=== PATIENT | female | born 1960 | race Caucasian/White ===

== ENCOUNTER 2017-02-23 09:57 | Day surgery (SDC) | payer OTHER ==
[~2017-02-23] VITALS: Ht 149.9 cm; Wt 53.1 kg
[2017-02-23 10:23] VITALS: Ht 149.9 cm; Wt 53.1 kg
[2017-02-23] MEDS ORDERED: MIDAZOLAM 1 MG/ML 2 ML INJ ONE (10:29)
[2017-02-23] MEDS ORDERED: PROPOFOL 20 ML ONE (10:29)
[2017-02-23] MEDS ORDERED: FENTAnyl 50 MCG/ML VIAL ONE (10:30)
[2017-02-23 10:35] VITALS: BP 122/71; PULSE 83; RESP 21
--- NOTE | 2017-02-23 11:23 | OPPN ---
Date/Time of Note Date/Time of Note DATE: 02/23/17 TIME: 11:19 Proc Note GI Procedure date: Feb 23, 2017 Pre-procedure Diagnosis Need for screening colonoscopy Post-procedure Diagnosis internal hemorrhoids Operation Performed Colonoscopy Surgeon: CAMRYN ANDREA M.D. Anesthesia Type: MAC Anesthesiologist: VIK ROSARIO MD Estimated blood loss: none Transfusion Required: no Specimen: none Grafts/Implants: none Complications: no Pt Condition post procedure: stable Disposition: PACU Operative\Procedure Findings internal hemorrhoids CAMRYN ANDREA M.D. Feb 23, 2017 11:22
[2017-02-23 11:46] VITALS: BP 111/63; PULSE 74; RESP 13
--- NOTE | 2017-02-23 12:26 | OPR ---
DATE OF OPERATION: 02/23/2017 OPERATION PERFORMED: Colonoscopy. PREOPERATIVE DIAGNOSIS: Need for screening colonoscopy. POSTOPERATIVE DIAGNOSIS: Internal hemorrhoids. SURGEON: Daniel Gross MD. ANESTHESIOLOGIST: Dr. Montalvo. ANESTHESIOLOGIST: ELISA. POSITION: Left lateral decubitus. OPERATIVE FINDINGS AT SURGERY: Internal hemorrhoids. INDICATIONS: A 56-year-old woman I had seen in the office for a proctologic issue. Patient stated she had never had a screening colonoscopy. I discussed the risks and benefits of a screening colonoscopy including bleeding, infection, damage to surrounding structures, perforation. Patient agreed to the procedure and we went to the GI suite. OPERATIVE PROCEDURE: After obtaining consent, the patient was brought to the GI suite. After induction of anesthesia, the patient was gently placed in left lateral decubitus position. The pressure points were carefully padded. I began with a digital rectal exam, which was unremarkable. I then placed a lubricated Olympus colonoscope in the patient's anus and navigated it carefully to the cecum. The prep was good. I slowly retracted the scope the entirety of the colon. There were no findings except for some internal hemorrhoids. The scope was removed and the procedure was terminated. The patient tolerated the procedure well and was transported to the PACU in good condition. Patient will follow up p.r.n. Next colonoscopy 5-10 years. Dictated By: Daniel Gross MD /[email or web address] /Document#: [id number]
== END 2017-02-23 12:36 | disposition home or self-care (01) ==
LOC: GIL 09:57
PROVIDERS: ATTEND Surgery
DX: Z12.11 Encounter for screening for malignant neoplasm of colon (principal); K64.8 Other hemorrhoids
CPT/HCPCS: 45378; J2250; J3010; Z7610